=== PATIENT | male | born 1940 | race Caucasian/White ===

== ENCOUNTER 2020-03-07 12:01 | Emergency (ER) | payer MEDICARE, OTHER ==
[2020-03-07] MEDS ORDERED: Sodium Chloride 0.9% 10 ML Syringe FLUSH PRN (12:06)
[2020-03-07 12:30] LABS: CHLORIDE,CL 101 mmol/L (98-107); SODIUM,NA 137 mmol/L (136-145)
[2020-03-07] MEDS: methylPREDNISolone Sodium Succinate 125 MG/2 ML SDV IVPUSH ONE (13:41)
[2020-03-07] MEDS: cefTRIAXone 1 GM in Sodium Chloride 0.9% 100 ML IV ONE (13:41)
--- NOTE | 2020-03-07 13:43 | EDM.PDOC ---
ED HPI GENERAL MEDICAL PROBLEM - General Chief Complaint: Respiratory Problem Stated Complaint: SOB Time Seen by Provider: 03/07/20 12:02 Source of Information: Reports: Patient, EMS History Limitations: Reports: No Limitations - History of Present Illness INITIAL COMMENTS - FREE TEXT/NARRATIVE: Pt with increased SOB for past several days Has hx/o oxygen dependent COPD USes 3 L at home On 5 L today sats 88% EMS put pt on 6 L and sats 91-92% No fever Rare cough No chest pain Onset: Gradual Duration: Day(s):, Getting Worse Location: Reports: Chest - Related Data Allergies Allergy/AdvReac Type Severity Reaction Status Date / Time levofloxacin Allergy Cannot Verified 03/07/20 12:49 Remember Penicillins Allergy Cannot Verified 03/07/20 12:49 Remember sulfameter Allergy Cannot Verified 03/07/20 12:49 Remember Hoxazole Allergy Cannot Uncoded 03/07/20 12:50 Remember Social & Family History - Tobacco Use Tobacco Use Status *Q: Former Tobacco User Years of Tobacco use: 56 Used Tobacco, but Quit: Yes Month/Year Tobacco Last Used: 2004 ED ROS GENERAL - Review of Systems Review Of Systems: See Below Constitutional: Reports: No Symptoms HEENT: Reports: No Symptoms Respiratory: Reports: Shortness of Breath Cardiovascular: Reports: No Symptoms GI/Abdominal: Reports: No Symptoms Musculoskeletal: Reports: No Symptoms ED EXAM, GENERAL - Physical Exam Exam: See Below Exam Limited By: No Limitations General Appearance: Alert, WD/WN, Mild Distress Throat/Mouth: Normal Oropharynx Neck: Supple Respiratory/Chest: Decreased Breath Sounds Cardiovascular: Tachycardia GI/Abdominal: Soft, Non-Tender Extremities: No Pedal Edema Neurological: Alert, Oriented, No Motor/Sensory Deficits Psychiatric: Normal Affect, Normal Mood Course - Vital Signs Last Recorded V/S: Last Vital Signs Temp 98.2 F 03/07/20 12:04 Pulse 102 H 03/07/20 13:04 Resp 20 03/07/20 13:04 BP 100/63 03/07/20 13:04 Pulse Ox 94 L 03/07/20 13:04 - Orders/Labs/Meds Orders: Active Orders 24 hr Category Date Time Status Chest 1V Frontal [CR] Stat Exams 03/07/20 12:03 Taken Sodium Chloride 0.9% [Saline Flush] Med 03/07/20 12:06 Active 10 ml FLUSH ASDIRECTED PRN cefTRIAXone [Rocephin] 1 gm Med 03/07/20 13:31 Active Sodium Chloride 0.9% [Normal Saline] 100 ml IV ONETIME Isolation [COMM] Routine Oth 03/07/20 12:05 Active Saline Lock Insert [OM.PC] Routine Oth 03/07/20 12:06 Ordered Medication Orders Ceftriaxone Sodium 1 gm/ (Sodium Chloride) 100 mls @ 200 mls/hr IV ONETIME ONE Stop: 03/07/20 14:00 Sodium Chloride (Saline Flush) 10 ml FLUSH ASDIRECTED PRN PRN Reason: Keep Vein Open Labs: Laboratory Tests 03/07/20 03/07/20 03/07/20 Range/Units 12:05 12:10 12:10 WBC 13.0 H (4.0-10.2) K/uL RBC 4.67 (4.33-5.41) M/uL Hgb 14.8 (13.1-16.8) g/dL Hct 45.2 (39.0-49.0) % MCV 96.8 (84.0-98.0) fL MCH 31.7 (28.2-33.3) pg MCHC 32.7 (31.7-36.0) g/dL RDW 12.7 (11.2-14.1) % Plt Count 194 (150-350) K/uL Neut % (Auto) 88.4 H (45.0-80.0) % Lymph % (Auto) 2.7 L (10.0-50.0) % [place] % (Auto) 8.6 (2.0-14.0) % Eos % (Auto) 0.1 (0.0-5.0) % Baso % (Auto) 0.2 (0.0-2.0) % Neut # (Auto) 11.52 H (1.40-7.00) K/uL Lymph # (Auto) 0.35 L (0.50-3.50) K/uL [place] # (Auto) 1.12 H (0.00-1.00) K/uL Eos # (Auto) 0.01 (0.00-0.50) K/uL Baso # (Auto) 0.02 (0.00-0.20) K/uL Sodium 137 (136-145) mmol/L Potassium 3.7 (3.5-5.1) mmol/L Chloride 101 (98-107) mmol/L Carbon Dioxide 21.8 (21.0-32.0) mmol/L BUN 23 H (7-18) mg/dL Creatinine 0.86 (0.51-1.17) mg/dL Est Cr Clr Drug Dosing 62.68 mL/min Estimated GFR (MDRD) > 60 mL/min Glucose 106 (74-106) mg/dL Lactic Acid (0.4-2.0) mmol/L Calcium 9.4 (8.5-10.1) mg/dL Total Bilirubin 1.1 H (0.2-1.0) mg/dL AST 14 L (15-37) U/L ALT 19 (12-78) U/L Alkaline Phosphatase 87 (46-116) IU/L Total Protein 7.3 (6.4-8.2) g/dL Albumin 3.2 L (3.4-5.0) g/dL SARS-CoV-2 RNA (KIMBER) Negative (NEGATIVE) 03/07/20 Range/Units 12:10 WBC (4.0-10.2) K/uL RBC (4.33-5.41) M/uL Hgb (13.1-16.8) g/dL Hct (39.0-49.0) % MCV (84.0-98.0) fL MCH (28.2-33.3) pg MCHC (31.7-36.0) g/dL RDW (11.2-14.1) % Plt Count (150-350) K/uL Neut % (Auto) (45.0-80.0) % Lymph % (Auto) (10.0-50.0) % [place] % (Auto) (2.0-14.0) % Eos % (Auto) (0.0-5.0) % Baso % (Auto) (0.0-2.0) % Neut # (Auto) (1.40-7.00) K/uL Lymph # (Auto) (0.50-3.50) K/uL [place] # (Auto) (0.00-1.00) K/uL Eos # (Auto) (0.00-0.50) K/uL Baso # (Auto) (0.00-0.20) K/uL Sodium (136-145) mmol/L Potassium (3.5-5.1) mmol/L Chloride (98-107) mmol/L Carbon Dioxide (21.0-32.0) mmol/L BUN (7-18) mg/dL Creatinine (0.51-1.17) mg/dL Est Cr Clr Drug Dosing mL/min Estimated GFR (MDRD) mL/min Glucose (74-106) mg/dL Lactic Acid 1.6 (0.4-2.0) mmol/L Calcium (8.5-10.1) mg/dL Total Bilirubin (0.2-1.0) mg/dL AST (15-37) U/L ALT (12-78) U/L Alkaline Phosphatase (46-116) IU/L Total Protein (6.4-8.2) g/dL Albumin (3.4-5.0) g/dL SARS-CoV-2 RNA (KIMBER) (NEGATIVE) Meds: Medications Generic Name Dose Route Start Last Admin Trade Name Freq PRN Reason Stop Dose Admin Ceftriaxone Sodium 1 gm/ 100 mls @ 200 mls/hr 03/07/20 13:31 Sodium Chloride IV 03/07/20 14:00 ONETIME ONE Sodium Chloride 10 ml 03/07/20 12:06 Saline Flush FLUSH ASDIRECTED PRN Keep Vein Open Discontinued Medications Generic Name Dose Route Start Last Admin Trade Name Freq PRN Reason Stop Dose Admin Methylprednisolone Sodium Succinate 125 mg 03/07/20 13:32 Solu-Medrol IVPUSH 03/07/20 13:33 ONETIME ONE - Re-Assessments/Exams Free Text/Narrative Re-Assessment/Exam: 03/07/20 13:41 See lab CXR with possible infiltrates in upper lobes Pt given Rocephin 1 gm IV and Solu-medrol 125 mg IV in ER D/W Dr Xiong On-call hospitalist Marydel Will accept in transfer Departure - Departure Time of Disposition: 13:45 Disposition: DC/Tfer to [facility] 02 Clinical Impression: COPD exacerbation - Discharge Information *PRESCRIPTION DRUG MONITORING PROGRAM REVIEWED*: Not Applicable *COPY OF PRESCRIPTION DRUG MONITORING REPORT IN PATIENT LUL: Not Applicable Referrals: PCP,Not In Area [Primary Care Provider] - Sepsis Event Note (ED) - Evaluation Sepsis Screening Result: Possible Sepsis Risk - Focused Exam Vital Signs: Vital Signs Temp Pulse Resp BP Pulse Ox 03/07/20 13:04 102 H 20 100/63 94 L 03/07/20 12:25 90 20 107/63 90 L 03/07/20 12:10 112 H 20 101/65 90 L 03/07/20 12:04 98.2 F 116 H 20 103/73 93 L - My Orders Last 24 Hours: My Active Orders 03/07/20 12:03 Chest 1V Frontal [CR] Stat 03/07/20 12:05 Isolation [COMM] Routine 03/07/20 12:06 Sodium Chloride 0.9% [Saline Flush] 10 ml FLUSH ASDIRECTED PRN Saline Lock Insert [OM.PC] Routine 03/07/20 13:31 cefTRIAXone [Rocephin] 1 gm Sodium Chloride 0.9% [Normal Saline] 100 ml IV ONETIME - Assessment/Plan Last 24 Hours: My Active Orders 03/07/20 12:03 Chest 1V Frontal [CR] Stat 03/07/20 12:05 Isolation [COMM] Routine 03/07/20 12:06 Sodium Chloride 0.9% [Saline Flush] 10 ml FLUSH ASDIRECTED PRN Saline Lock Insert [OM.PC] Routine 03/07/20 13:31 cefTRIAXone [Rocephin] 1 gm Sodium Chloride 0.9% [Normal Saline] 100 ml IV ONETIME
== END 2020-03-07 14:25 ==
LOC: LL.ED 12:01
DX: J44.1 Chronic obstructive pulmonary disease with (acute) exacerbation (principal); Z87.891 Personal history of nicotine dependence; Z88.1 Allergy status to other antibiotic agents; Z88.0 Allergy status to penicillin; Z88.2 Allergy status to sulfonamides; Z88.8 Allergy status to other drugs, medicaments and biological substances; Z20.828 Contact with and (suspected) exposure to other viral communicable diseases
CPT/HCPCS: 36415; 71045; 80053; 83605; 85025; 87804; 96365; 96375; 99285-25; J0696; J2930; U0002

== ENCOUNTER 2021-01-02 14:03 | Emergency (ER) | payer OTHER, MEDICARE ==
[2021-01-02] MEDS ORDERED: Sodium Chloride 0.9% 10 ML Syringe FLUSH PRN (14:14)
[2021-01-02] MEDS ORDERED: Lactated Ringers 1,000 ML IV ONE (14:15)
[2021-01-02] MEDS ORDERED: HYDROmorphone 0.5 MG/0.5 ML Syringe IV ONE (14:15)
[2021-01-02] MEDS ORDERED: Ondansetron 4 MG/2 ML SDV IV ONE (14:15)
--- NOTE | 2021-01-02 14:15 | EDM.PDOC ---
ED HPI GENERAL MEDICAL PROBLEM - General Chief Complaint: Abdominal Pain Stated Complaint: abdominal pain Time Seen by Provider: 01/02/21 14:05 Source of Information: Reports: Patient History Limitations: Reports: No Limitations - History of Present Illness INITIAL COMMENTS - FREE TEXT/NARRATIVE: Patient comes emergency department today from home by ambulance with complaints of epigastric pain. This patient who has not had any surgeries in his abdomen in the past developed epigastric right upper quadrant pain 3 days ago after having a very fatty heavy meal. Initially he had severe pain in the right upper quadrant that was peristaltic in nature and intermittent but today has developed into constant severe epigastric and right upper quadrant pain. He has no hematuria dysuria urinary frequency. He has had no black tarry stools diarrhea or hematochezia. He denies any chest pain shortness of breath or difficulty breathing. Denies any weakness dizziness lightheadedness. No palpitations. No syncope. No fever no chills. He has been recurrent Robert vomiting all morning. Middle Epigastric Pain Score (Numeric/FACES): 10 - Related Data Allergies Allergy/AdvReac Type Severity Reaction Status Date / Time levofloxacin Allergy Cannot Verified 01/02/21 14:04 Remember Penicillins Allergy Cannot Verified 01/02/21 14:04 Remember strawberry Allergy Other Verified 01/02/21 14:04 sulfameter Allergy Cannot Verified 01/02/21 14:04 Remember Hoxazole Allergy Cannot Uncoded 01/02/21 14:04 Remember Home Meds: Home Meds Hydrocodone/Acetaminophen [HYDROcodone-Acetaminophen 5-325 MG] 1 each PO Q4HR PRN #14 tab 01/02/21 [Rx] ED ROS GENERAL - Review of Systems Review Of Systems: Comprehensive ROS is negative, except as noted in HPI. ED EXAM, GI/ABD - Physical Exam Exam: See Below Exam Limited By: No Limitations General Appearance: Alert, WD/WN, Mild Distress (Appears in somewhat discomfort or pain.) Eyes: Bilateral: EOMI Ears: Normal External Exam Nose: Normal Inspection Throat/Mouth: Normal Inspection, Normal Lips Head: Atraumatic, Normocephalic Neck: Normal Inspection, Supple, Non-Tender Respiratory/Chest: No Respiratory Distress, Lungs Clear, No Accessory Muscle Use, Chest Non-Tender Cardiovascular: Normal Peripheral Pulses, Regular Rate, Rhythm GI/Abdominal Exam: Normal Bowel Sounds, Guarding (Right upper quadrant positive Perez sign with guarding), Rigid (Mild rigidity throughout the abdomen), Tender (Generalized tenderness throughout the abdomen. More to the RUQ with guarding positive murphys sign. ). No: Rebound (No rebound tenderness.) (Male) Exam: Deferred Rectal (Males) Exam: Deferred Back Exam: Normal Inspection, Full Range of Motion Extremities: Normal Inspection, Normal Range of Motion, Non-Tender, No Pedal Edema, Normal Capillary Refill Neurological: Alert, Oriented, Normal Cognition, No Motor/Sensory Deficits Psychiatric: Normal Affect, Normal Mood Skin Exam: Intact, Cool, Diaphoretic, Pallor Lymphatic: No Adenopathy Course - Vital Signs Last Recorded V/S: Last Vital Signs Temp 97.3 F 01/02/21 14:08 Pulse 75 01/02/21 16:30 Resp 16 01/02/21 16:30 BP 115/54 L 01/02/21 16:30 Pulse Ox 94 L 01/02/21 16:30 - Orders/Labs/Meds Orders: Active Orders 24 hr Category Date Time Status Gallbladder [Abdomen Ltd] [US] Stat Exams 01/02/21 14:23 Taken PROCALCITONIN [REF] Stat Lab 01/02/21 14:20 Received Peripheral IV Insertion Adult [OM.PC] Stat Oth 01/02/21 14:14 Ordered Labs: Laboratory Tests 01/02/21 01/02/21 01/02/21 Range/Units 14:20 14:20 14:20 WBC 7.0 (4.0-10.2) K/uL RBC 4.74 (4.33-5.41) M/uL Hgb 14.3 (13.1-16.8) g/dL Hct 43.7 (39.0-49.0) % MCV 92.2 D (84.0-98.0) fL MCH 30.2 (28.2-33.3) pg MCHC 32.7 (31.7-36.0) g/dL RDW 13.4 (11.2-14.1) % Plt Count 182 (150-350) K/uL Neut % (Auto) 75.3 (45.0-80.0) % Lymph % (Auto) 15.2 (10.0-50.0) % [place] % (Auto) 7.3 (2.0-14.0) % Eos % (Auto) 1.9 (0.0-5.0) % Baso % (Auto) 0.3 (0.0-2.0) % Neut # (Auto) 5.26 (1.40-7.00) K/uL Lymph # (Auto) 1.06 (0.50-3.50) K/uL [place] # (Auto) 0.51 (0.00-1.00) K/uL Eos # (Auto) 0.13 (0.00-0.50) K/uL Baso # (Auto) 0.02 (0.00-0.20) K/uL Sodium 139 (136-145) mmol/L Potassium 3.8 (3.5-5.1) mmol/L Chloride 103 (98-107) mmol/L Carbon Dioxide 25.0 (21.0-32.0) mmol/L Anion Gap 11.0 (7-15) meq/L BUN 17 (7-18) mg/dL Creatinine 0.94 (0.51-1.17) mg/dL Est Cr Clr Drug Dosing TNP Estimated GFR (MDRD) > 60 mL/min Glucose 104 H (70-99) mg/dL Lactic Acid 0.9 (0.4-2.0) mmol/L Calcium 9.4 (8.5-10.1) mg/dL Total Bilirubin 1.6 H (0.2-1.0) mg/dL AST 189 H (15-37) U/L ALT 140 H (12-78) U/L Alkaline Phosphatase 231 H (46-116) IU/L Troponin I High Sens 31 (<=76) ng/L C-Reactive Protein 8.0 H (<=0.9) mg/dL Total Protein 7.2 (6.4-8.2) g/dL Albumin 3.5 (3.4-5.0) g/dL Lipase 55 L (73-393) U/L Meds: Medications Discontinued Medications Generic Name Dose Route Start Last Admin Trade Name Freq PRN Reason Stop Dose Admin Hydromorphone HCl 0.5 mg 01/02/21 14:15 01/02/21 14:20 Hydromorphone 0.5 Mg/0.5 Ml Syringe IV 01/02/21 14:16 0.5 mg ONETIME ONE Administration Lactated Ringer's 1,000 mls @ 1,000 mls/hr 01/02/21 14:15 01/02/21 14:28 Ringers, Lactated IV 01/02/21 15:14 1,000 mls/hr .BOLUS ONE Administration Ondansetron HCl 4 mg 01/02/21 14:15 01/02/21 14:19 Ondansetron 4 Mg/2 Ml Sdv IV 01/02/21 14:16 4 mg ONETIME ONE Administration Sodium Chloride 10 ml 01/02/21 14:14 01/02/21 14:20 Sodium Chloride 0.9% 10 Ml Syringe FLUSH 10 ml ASDIRECTED PRN Administration Keep Vein Open - Radiology Interpretation Free Text/Narrative:: Right upper quadrant ultrasound completed while in the emergency department. Per radiology shows gallbladder overall appears mildly distended containing multiple dependently located in nonmobile gallstones. No lukas-Loni cystic fluid. No definite wall thickening. Gallbladder wall is at the upper limits at 3 to 4 mm. Common duct is dilated 1.4 cm. No filling defects but would be difficult to exclude more distal stone. Consider follow-up MRCP. 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 Renal cyst present measuring up to 2 cm. No hydronephrosis. - Re-Assessments/Exams Free Text/Narrative Re-Assessment/Exam: 01/02/21 14:28 IV was established labs are drawn. Dilaudid 0.5 mg IV push. Zofran 4 mg IV push. Gallbladder ultrasound ordered. He has not eaten since last night. Laboratory evaluation with a normal CBC. CMP glucose 104, T bili 1.6, AST 189, ALT 140, alkaline phosphatase 231 Troponin negative at 31. C-reactive protein 8.0. Lipase normal at 55. EKG with a normal sinus rhythm rate of [address] elevation or depression when reviewed extemporaneously by myself. Patient had complete resolution of his abdominal pain as well as his nausea and vomiting. Repeat examination shows a soft nontender nondistended abdomen. He clearly has biliary colic as well as cholelithiasis. No evidence of acute cholecystitis. Although he does have a mild elevation of his T bili. His common bile duct is on the upper limits of normal. I do not see any overt signs of severe biliary obstruction. Patient is completely pain-free and would like to go home. I think this is appropriate at this time although [facility] his [facility] is elevated and he probably needs either an ERCP MRCP or surgical intervention in the very near future. This was explained to him and his family and they need to contact them tomorrow. They are very understanding this. Discussed gallbladder diet with the patient. As well as hydrocodone for pain. Return the emergency department or worsening symptoms. He has family are comfortable this plan and their questions are answered. Departure - Departure Time of Disposition: 16:04 Disposition: Home, Self-Care 01 Clinical Impression: Biliary colic, Total bilirubin, elevated Cholelithiasis Qualifiers: Cholelithiasis location: gallbladder Cholecystitis presence: without cholecystitis Biliary obstruction: without biliary obstruction Qualified Code(s): K80.20 - Calculus of gallbladder without cholecystitis without obstruction - Discharge Information Prescriptions: Hydrocodone/Acetaminophen [HYDROcodone-Acetaminophen 5-325 MG] 1 each PO Q4HR PRN #14 tab PRN Reason: Pain Instructions: Cholelithiasis, [id number], Biliary Colic, Adult, Pain Medicine Instructions, [id number] Referrals: PCP,None [Primary Care Provider] - Forms: ED Department Discharge Additional Instructions: Drink plenty of fluids over the next few days. Tylenol and or ibuprofen as needed for pain. Low fat diet. Nothing fatty, rich spicy or rich. If pain not controlled with above. [place] 1-2 tabs every 4-6 hrs with food as ne eded for pain. Caution sedation and constipation. Use Miralax OTC to prevent constipation. [facility]. You will need to be seen [facility]. A copy of the Ultrasound has been given to you to share with the [facility]. Return to the ED if new or worsening symptoms. Especially any change in the color of your skin, fever, worsening pain or uncontrolled nausea or vomiting. Zofran 1 tablet every 6 hrs as needed for nausea. Sepsis Event Note (ED) - Evaluation Sepsis Screening Result: No Definite Risk - Focused Exam Vital Signs: Vital Signs Temp Pulse Resp BP Pulse Ox 01/02/21 16:30 75 16 115/54 L 94 L 01/02/21 16:00 73 16 107/52 L 92 L 01/02/21 15:30 79 15 116/53 L 96 01/02/21 14:30 79 16 120/66 93 L 01/02/21 14:08 97.3 F 77 26 H 122/91 H 94 L - My Orders Last 24 Hours: My Active Orders 01/02/21 14:14 Peripheral IV Insertion Adult [OM.PC] Stat 01/02/21 14:20 PROCALCITONIN [REF] Stat 01/02/21 14:23 Gallbladder [Abdomen Ltd] [US] Stat - Assessment/Plan Last 24 Hours: My Active Orders 01/02/21 14:14 Peripheral IV Insertion Adult [OM.PC] Stat 01/02/21 14:20 PROCALCITONIN [REF] Stat 01/02/21 14:23 Gallbladder [Abdomen Ltd] [US] Stat
[2021-01-02 14:47] LABS: CHLORIDE,CL 103 mmol/L (98-107); SODIUM,NA 139 mmol/L (136-145)
[2021-01-02 17:25] VITALS: BP 115/54; PULSE 75
--- NOTE | 2021-01-02 17:51 | PCM.EKG ---
#1 Interpretation EKG Date: 01/02/21 Time: 14:30 Rhythm: NSR Rate (Beats/Min): 74 [place]: Normal P-Wave: Present QRS: Normal ST-T: Normal QT: Normal Comparison: NA - No Prior EKG
== END 2021-01-02 16:50 | disposition home or self-care (01) ==
LOC: LL.ED 14:03
DX: K80.20 Calculus of gallbladder without cholecystitis without obstruction (principal); E80.7 Disorder of bilirubin metabolism, unspecified; Z88.0 Allergy status to penicillin; Z88.1 Allergy status to other antibiotic agents; Z91.018 Allergy to other foods; Z88.8 Allergy status to other drugs, medicaments and biological substances
CPT/HCPCS: 36415; 76705; 80053; 83605; 83690; 84145; 84484; 85025; 86140; 93005; 96374; 96375; 99284; 99284-25; J1170; J2405; J7120

== ENCOUNTER 2021-02-25 13:26 | Emergency (ER) | payer OTHER, MEDICARE ==
[2021-02-25] MEDS ORDERED: Lactated Ringers 1,000 ML IV ONE (13:48)
--- NOTE | 2021-02-25 13:54 | EDM.PDOC ---
<Birdie Subramanian - Last Filed: 02/25/21 20:27> ED HPI GENERAL MEDICAL PROBLEM - General Chief Complaint: Respiratory Problem Stated Complaint: SOB Time Seen by Provider: 02/25/21 13:35 Source of Information: Reports: Patient History Limitations: Reports: No Limitations - History of Present Illness Onset: Today, Sudden Duration: Hour(s): - Related Data Allergies Allergy/AdvReac Type Severity Reaction Status Date / Time levofloxacin Allergy Cannot Verified 02/25/21 13:27 Remember Penicillins Allergy Cannot Verified 02/25/21 13:27 Remember strawberry Allergy Other Verified 02/25/21 13:27 sulfameter Allergy Cannot Verified 02/25/21 13:27 Remember Hoxazole Allergy Cannot Uncoded 02/25/21 13:27 Remember Home Meds: Home Meds Hydrocodone/Acetaminophen [HYDROcodone-Acetaminophen 5-325 MG] 1 each PO Q4HR PRN #14 tab 01/02/21 [Rx] Albuterol Sulfate [Proair Digihaler] 2 puff INH Q4HR PRN 02/25/21 [History] Alendronate Sodium 1 tab PO WEEKLY 02/25/21 [History] Apixaban [Eliquis] 1 tab PO BID 02/25/21 [History] Aspirin [Aspirin EC] 1 tab PO DAILY 02/25/21 [History] Fluticasone Propionate [Flonase Allergy Relief] 1 spray NASBOTH BID 02/25/21 [History] Metoprolol Succinate [Toprol XL] 1 tab PO DAILY 02/25/21 [History] Montelukast [Singulair] 1 tab PO BEDTIME 02/25/21 [History] Omeprazole 1 tab PO QPM 02/25/21 [History] Simvastatin 1 tab PO BEDTIME 02/25/21 [History] Tiotropium [Spiriva HandiHaler] 1 cap INH DAILY 02/25/21 [History] cycloSPORINE [Restasis Multidose] 1 drop EYEBOTH DAILY 02/25/21 [History] Past Medical History HEENT History: Reports: Hard of Hearing, Impaired Vision Cardiovascular History: Reports: High Cholesterol Respiratory History: Reports: COPD, Other (See Below) Other Respiratory History: emphysema Musculoskeletal History: Reports: Arthritis, Fracture Social & Family History - Caffeine Use Caffeine Use: Reports: Coffee ED ROS GENERAL - Review of Systems Review Of Systems: See Below Constitutional: Reports: No Symptoms. Denies: Fever, Chills, Weakness HEENT: Reports: No Symptoms Respiratory: Reports: Shortness of Breath. Denies: Wheezing, Pleuritic Chest Pain, Cough, Sputum Cardiovascular: Reports: No Symptoms Endocrine: Reports: No Symptoms GI/Abdominal: Reports: No Symptoms : Reports: No Symptoms Musculoskeletal: Reports: No Symptoms Skin: Reports: No Symptoms Neurological: Reports: No Symptoms Psychiatric: Reports: No Symptoms Hematologic/Lymphatic: Reports: No Symptoms Immunologic: Reports: No Symptoms ED EXAM, GENERAL - Physical Exam Exam: See Below Exam Limited By: No Limitations General Appearance: Alert, WD/WN, Mild Distress Ears: Normal External Exam Nose: Normal Inspection Neck: Normal Inspection, Full Range of Motion Respiratory/Chest: Lungs Clear, Decreased Breath Sounds (bilateral bases). No: Crackles, Rales, Rhonchi, Wheezing Course - Re-Assessments/Exams Free Text/Narrative Re-Assessment/Exam: 02/25/21 13:51 met at bedside. labs including CMP, CBC, d dimer, BNP, Mg, trop ordered. COVID/Influenza/RSV swab complete. CXR pending. 02/25/21 14:47 Hypotensive and tachycardic. SBP 90s and HR 150s. EKG: afib with rate 130-150. will provide fluid resuscitation prior to providing rate control medication. currently anticoagulated with eliquis. Pro BNP elevated. won't tolerate diuresis at this time 2/2 hypotension. home oxygen requirement 5L for COPD. pt currently requiring 4L with saturations in the mid to high 90s. 02/25/21 14:50 influenza/ covid/ RSV negative. 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 CXR shows emphysematous change and some bilateral pulmonary vascular congestion. 02/25/21 18:[address] Diaz at [facility]. Patient had been on a levo drip as his systolic blood pressure was in 80s. Change was then made to phenylephrine to avoid beta-blockade. Digoxin 0.5 mg low given x1 amiodarone 150 mg bolus given then 1 mg/min after. Post intervention heart rate remained 100 3150, blood pressure 99/79, respiratory rate increased to 35-40 with oxygen saturation 90% on 5 L. Patient was adamant that he was not interested in being intubated. Traffic Court Referee did not think it was safe to transfer patient to [facility] without intubation and ventilation but did agree that the odds that he would come off of the ventilator with severe COPD were extremely low. Patient continue to stress that he wanted no intubation. Transition was made to comfort cares. As needed morphine and Ativan were given, family was present at bedside. Awaiting end-of-life inpatient. Departure - Departure Disposition: Home, Self-Care 01 Clinical Impression: Decompensated COPD with exacerbation (chronic obstructive pulmonary disease), Need for comfort care, Atrial fibrillation with rapid ventricular response - Discharge Information Referrals: PCP,Unknown [Primary Care Provider] - Forms: ED Department Discharge Additional Instructions: Home with hospice. Sepsis Event Note (ED) - Evaluation Sepsis Screening Result: No Definite Risk <Vasiliy Jarrell - Last Filed: 02/26/21 14:15> Course - Vital Signs Last Recorded V/S: Last Vital Signs Temp 98.5 F 02/25/21 13:32 Pulse 94 02/25/21 17:55 Resp 32 H 02/25/21 17:55 BP 131/103 H 02/25/21 17:55 Pulse Ox 82 L 02/25/21 17:55 - Orders/Labs/Meds Orders: Active Orders 24 hr Category Date Time Status Oxygen Therapy [RC] PRN Care 02/25/21 13:49 Active Peripheral IV Care [RC] . DIRECTED Care 02/25/21 13:49 Active Pulse Oximetry [RC] CONTINUOUS Care 02/25/21 13:49 Active RT Aerosol Therapy [RC] ASDIRECTED Care 02/25/21 14:50 Active Chest 1V Frontal [CR] Stat Exams 02/25/21 13:48 Taken CULTURE BLOOD [BC] Stat Lab 02/25/21 13:46 Results CULTURE BLOOD [BC] Stat Lab 02/25/21 14:00 Results Digoxin [Lanoxin] Med 02/26/21 08:00 Active 125 mcg PO DAILY Glycopyrrolate [Robinul] Med 02/26/21 06:42 Active 0.2 mg IVPUSH Q4HR PRN LORazepam [Ativan] Med 02/25/21 21:05 Active 2 mg IVPUSH Q1H PRN Morphine Med 02/25/21 20:41 Active 4 mg IVPUSH Q30M PRN Sodium Chloride 0.9% [Saline Flush] Med 02/25/21 13:48 Active 10 ml FLUSH ASDIRECTED PRN Blood Culture x2 Reflex Set [OM.PC] Stat Oth 02/25/21 13:51 Ordered Peripheral IV Insertion Adult [OM.PC] Urgent Oth 02/25/21 13:48 Ordered Code Status [Resuscitation Status] Stat Resus Stat 02/25/21 15:25 Ordered Medication Orders Digoxin (Digoxin 125 Mcg Tab) 125 mcg PO DAILY KIANNA Glycopyrrolate (Glycopyrrolate 0.2 Mg/Ml Sdv) 0.2 mg IVPUSH Q4HR PRN PRN Reason: secretions Last Admin: 02/26/21 12:49 Dose: 0.2 mg Documented by: Admin: 02/26/21 07:36 Dose: 0.2 mg Documented by: TALI Lorazepam (Lorazepam 2 Mg/Ml Sdv) 2 mg IVPUSH Q1H PRN PRN Reason: Other Last Admin: 02/26/21 13:06 Dose: 2 mg Documented by: Admin: 02/26/21 10:36 Dose: 2 mg Documented by: TALI Morphine Sulfate (Morphine 4 Mg/Ml Syringe) 4 mg IVPUSH Q30M PRN PRN Reason: Other Last Admin: 02/26/21 12:49 Dose: 4 mg Documented by: Admin: 02/26/21 10:29 Dose: 4 mg Documented by: Admin: 02/26/21 08:57 Dose: 4 mg Documented by: Admin: 02/26/21 06:39 Dose: 4 mg Documented by: Admin: 02/25/21 23:05 Dose: 4 mg Documented by: ABIGAIL Sodium Chloride (Sodium Chloride 0.9% 10 Ml Syringe) 10 ml FLUSH ASDIRECTED PRN PRN Reason: Keep Vein Open Last Admin: 02/26/21 12:50 Dose: 10 ml Documented by: Admin: 02/26/21 10:29 Dose: 10 ml Documented by: Admin: 02/26/21 08:56 Dose: 10 ml Documented by: Admin: 02/26/21 07:36 Dose: 10 ml Documented by: Admin: 02/26/21 06:40 Dose: 10 ml Documented by: Admin: 02/25/21 23:06 Dose: 10 ml Documented by: Admin: 02/25/21 17:20 Dose: 10 ml Documented by: Admin: 02/25/21 16:43 Dose: 10 ml Documented by: KIKA Labs: Laboratory Tests 02/25/21 02/25/21 02/25/21 Range/Units 13:46 13:46 13:46 WBC 7.3 (4.0-10.2) K/uL RBC 4.49 (4.33-5.41) M/uL Hgb 13.5 (13.1-16.8) g/dL Hct 41.6 (39.0-49.0) % MCV 92.7 (84.0-98.0) fL MCH 30.1 (28.2-33.3) pg MCHC 32.5 (31.7-36.0) g/dL RDW 14.8 H (11.2-14.1) % Plt Count 193 (150-350) K/uL Neut % (Auto) 67.8 (45.0-80.0) % Lymph % (Auto) 15.6 (10.0-50.0) % [place] % (Auto) 13.0 (2.0-14.0) % Eos % (Auto) 3.3 (0.0-5.0) % Baso % (Auto) 0.3 (0.0-2.0) % Neut # (Auto) 4.98 (1.40-7.00) K/uL Lymph # (Auto) 1.14 (0.50-3.50) K/uL [place] # (Auto) 0.95 (0.00-1.00) K/uL Eos # (Auto) 0.24 (0.00-0.50) K/uL Baso # (Auto) 0.02 (0.00-0.20) K/uL D-Dimer, Quantitative < 100 (0-400) ng/mL Sodium 141 (136-145) mmol/L Potassium 4.0 (3.5-5.1) mmol/L Chloride 104 (98-107) mmol/L Carbon Dioxide 27.0 (21.0-32.0) mmol/L Anion Gap 10.0 (7-15) meq/L BUN 21 H (7-18) mg/dL Creatinine 1.27 H (0.51-1.17) mg/dL Est Cr Clr Drug Dosing TNP Estimated GFR (MDRD) 55 mL/min Glucose 105 H (70-99) mg/dL Calcium 9.4 (8.5-10.1) mg/dL Magnesium 2.0 (1.8-2.4) mg/dL Total Bilirubin 0.9 (0.2-1.0) mg/dL AST 12 L (15-37) U/L ALT 13 (12-78) U/L Alkaline Phosphatase 67 (46-116) IU/L Troponin I High Sens (<=76) ng/L NT-Pro-B Natriuret Pep 3325 H (0-125) pg/mL Total Protein 7.0 (6.4-8.2) g/dL Albumin 3.2 L (3.4-5.0) g/dL Influenza Type A RNA (NEGATIVE) RSV RNA (INAAT) (NEGATIVE) Influenza Type B RNA (NEGATIVE) SARS-CoV-2 RNA (KIMBER) (NEGATIVE) 02/25/21 02/25/21 Range/Units 13:46 13:50 WBC (4.0-10.2) K/uL RBC (4.33-5.41) M/uL Hgb (13.1-16.8) g/dL Hct (39.0-49.0) % MCV (84.0-98.0) fL MCH (28.2-33.3) pg MCHC (31.7-36.0) g/dL RDW (11.2-14.1) % Plt Count (150-350) K/uL Neut % (Auto) (45.0-80.0) % Lymph % (Auto) (10.0-50.0) % [place] % (Auto) (2.0-14.0) % Eos % (Auto) (0.0-5.0) % Baso % (Auto) (0.0-2.0) % Neut # (Auto) (1.40-7.00) K/uL Lymph # (Auto) (0.50-3.50) K/uL [place] # (Auto) (0.00-1.00) K/uL Eos # (Auto) (0.00-0.50) K/uL Baso # (Auto) (0.00-0.20) K/uL D-Dimer, Quantitative (0-400) ng/mL Sodium (136-145) mmol/L Potassium (3.5-5.1) mmol/L Chloride (98-107) mmol/L Carbon Dioxide (21.0-32.0) mmol/L Anion Gap (7-15) meq/L BUN (7-18) mg/dL Creatinine (0.51-1.17) mg/dL Est Cr Clr Drug Dosing Estimated GFR (MDRD) mL/min Glucose (70-99) mg/dL Calcium (8.5-10.1) mg/dL Magnesium (1.8-2.4) mg/dL Total Bilirubin (0.2-1.0) mg/dL AST (15-37) U/L ALT (12-78) U/L Alkaline Phosphatase (46-116) IU/L Troponin I High Sens 8 (<=76) ng/L NT-Pro-B Natriuret Pep (0-125) pg/mL Total Protein (6.4-8.2) g/dL Albumin (3.4-5.0) g/dL Influenza Type A RNA Negative (NEGATIVE) RSV RNA (INAAT) Negative (NEGATIVE) Influenza Type B RNA Negative (NEGATIVE) SARS-CoV-2 RNA (KIMBER) Negative (NEGATIVE) Meds: Medications Generic Name Dose Route Start Last Admin Trade Name Freq PRN Reason Stop Dose Admin Digoxin 125 mcg 02/26/21 08:00 Digoxin 125 Mcg Tab PO DAILY KIANNA Glycopyrrolate 0.2 mg 02/26/21 06:42 02/26/21 12:49 Glycopyrrolate 0.2 Mg/Ml Sdv IVPUSH 0.2 mg Q4HR PRN Administration secretions Lorazepam 2 mg 02/25/21 21:05 02/26/21 13:06 Lorazepam 2 Mg/Ml Sdv IVPUSH 2 mg Q1H PRN Administration Other Morphine Sulfate 4 mg 02/25/21 20:41 02/26/21 12:49 Morphine 4 Mg/Ml Syringe IVPUSH 4 mg Q30M PRN Administration Other Sodium Chloride 10 ml 02/25/21 13:48 02/26/21 12:50 Sodium Chloride 0.9% 10 Ml Syringe FLUSH 10 ml ASDIRECTED PRN Administration Keep Vein Open Discontinued Medications Generic Name Dose Route Start Last Admin Trade Name Josseline PRN Reason Stop Dose Admin Albuterol/Ipratropium 3 ml 02/25/21 14:50 02/25/21 15:07 Albuterol/Ipratropium 3.0-0.5 Mg/3 Ml Neb Soln NEB 02/25/21 14:51 3 ml ONETIME ONE Administration Amiodarone HCl 150 mg 02/25/21 16:23 02/25/21 17:20 Amiodarone 150 Mg/3 Ml Sdv IVPUSH 02/25/21 16:24 150 mg ONETIME ONE Administration Digoxin 500 mcg 02/25/21 16:27 02/25/21 16:43 Digoxin 500 Mcg/2 Ml Amp IVPUSH 02/25/21 16:28 500 mcg ONETIME ONE Administration Digoxin 250 mcg 02/25/21 20:45 Digoxin 500 Mcg/2 Ml Amp IVPUSH 02/25/21 20:46 ONETIME ONE Lactated Ringer's 1,000 mls @ 999 mls/hr 02/25/21 13:48 02/25/21 13:45 Ringers, Lactated IV 02/25/21 14:48 999 mls/hr .BOLUS ONE Administration Norepinephrine Bitartrate 4 mg 250 mls @ 7.5 mls/hr 02/25/21 15:30 02/25/21 15:47 / Dextrose/Water IV 2 mcg/min TITRATE KIANNA 7.5 mls/hr Administration Protocol 2 MCG/MIN Phenylephrine HCl 10 mg/ 101 mls @ 24.24 mls/hr 02/25/21 16:30 02/25/21 16:56 Sodium Chloride IV 40 mcg/min TITRATE KIANNA 24.24 mls/hr Administration Protocol 40 MCG/MIN Amiodarone HCl/Dextrose 360 mg in 200 mls @ 33.333 mls/hr 02/25/21 16:30 02/25/21 17:32 Nexterone In Dextrose 360 Mg/200 Ml IV 33.333 mls/hr ASDIRECTED KIANNA Administration Protocol Lorazepam Confirm 02/25/21 17:55 Lorazepam 2 Mg/Ml Sdv Administered 02/25/21 17:56 Dose 2 mg .ROUTE .STK-MED ONE Lorazepam Confirm 02/25/21 18:03 Lorazepam 2 Mg/Ml Sdv Administered 02/25/21 18:04 Dose 2 mg .ROUTE .STK-MED ONE Lorazepam Confirm 02/25/21 18:06 Lorazepam 2 Mg/Ml Sdv Administered 02/25/21 18:07 Dose 4 mg .ROUTE .STK-MED ONE Morphine Sulfate Confirm 02/25/21 17:55 Morphine 2 Mg/Ml Syringe Administered 02/25/21 17:56 Dose 2 mg .ROUTE .STK-MED ONE Morphine Sulfate Confirm 02/25/21 17:57 Morphine 2 Mg/Ml Syringe Administered 02/25/21 17:58 Dose 2 mg .ROUTE .STK-MED ONE Morphine Sulfate Confirm 02/25/21 17:59 Morphine 2 Mg/Ml Syringe Administered 02/25/21 18:00 Dose 2 mg .ROUTE .STK-MED ONE Morphine Sulfate Confirm 02/25/21 18:01 Morphine 2 Mg/Ml Syringe Administered 02/25/21 18:02 Dose 4 mg .ROUTE .STK-MED ONE Morphine Sulfate Confirm 02/25/21 18:05 Morphine 4 Mg/Ml Syringe Administered 02/25/21 18:06 Dose 8 mg .ROUTE .STK-MED ONE Morphine Sulfate Confirm 02/25/21 18:21 Morphine 4 Mg/Ml Syringe Administered 02/25/21 18:22 Dose 4 mg .ROUTE .STK-MED ONE - Re-Assessments/Exams Free Text/Narrative Re-Assessment/Exam: 02/26/21 14:13 Patient remained relatively unresponsive most of the night and this morning. His oxygen was decreased to 2 L. He was receiving as needed Ativan and morphine. He is maintaining at this time. Patient is comfort care is no aggressive management and all drips have been discontinued. The patient is actively dying although the family would like him to at home. There was a long discussion with social work and the family and this is their wishes as well as the patient's wishes. Hospice was set up and they will meet him at home and he was discharged home. The patient is unresponsive upon discharge. Departure - Departure Time of Disposition: 13:00 - My Orders Last 24 Hours: My Active Orders 02/26/21 06:42 Glycopyrrolate [Robinul] 0.2 mg IVPUSH Q4HR PRN - Assessment/Plan Last 24 Hours: My Active Orders 02/26/21 06:42 Glycopyrrolate [Robinul] 0.2 mg IVPUSH Q4HR PRN
[2021-02-25 14:28] LABS: CHLORIDE,CL 104 mmol/L (98-107); SODIUM,NA 141 mmol/L (136-145)
[2021-02-25 14:38] LABS: CORONAVIRUS COVID-19 NAA NEGATIVE (NEGATIVE); RESPIRATORY SYNCYTIAL VIR NAA NEGATIVE (NEGATIVE)
[2021-02-25] MEDS ORDERED: Albuterol/Ipratropium 3.0-0.5 MG/3 ML Neb Soln NEB ONE (14:50)
[2021-02-25] MEDS ORDERED: Norepinephrine 4 MG in Dextrose 5% in Water 246 ML IV SCH ×2 (15:30)
[2021-02-25] MEDS ORDERED: Amiodarone 150 MG/3 ML SDV IVPUSH ONE (16:23)
[2021-02-25] MEDS ORDERED: Digoxin 500 MCG/2 ML Amp IVPUSH ONE ×2 (16:27→20:45)
[2021-02-25] MEDS: Sodium Chloride 0.9% 10 ML Syringe FLUSH PRN ×3 (16:43→23:06)
[2021-02-25] MEDS ORDERED: Morphine 2 MG/ML SYRINGE ONE ×8 (17:55→18:01)
[2021-02-25] MEDS ORDERED: Morphine 4 MG/ML Syringe ONE ×6 (17:55→20:54)
[2021-02-25] MEDS ORDERED: LORazepam 2 MG/ML SDV ONE ×6 (17:55→19:33)
[2021-02-25] MEDS: Morphine 4 MG/ML Syringe IVPUSH PRN (23:05)
[2021-02-26] MEDS: Morphine 4 MG/ML Syringe IVPUSH PRN ×6 (06:39→15:29)
[2021-02-26] MEDS: Sodium Chloride 0.9% 10 ML Syringe FLUSH PRN ×5 (06:40→12:50)
[2021-02-26] MEDS: Glycopyrrolate 0.2 MG/ML SDV IVPUSH PRN ×2 (07:36→12:49)
[2021-02-26] MEDS ORDERED: Digoxin 125 MCG Tab PO SCH (08:00)
[2021-02-26] MEDS: LORazepam 2 MG/ML SDV IVPUSH PRN ×3 (10:36→14:25)
== END 2021-02-26 15:46 | disposition home or self-care (01) ==
LOC: LL.ED 13:26
DX: J44.1 Chronic obstructive pulmonary disease with (acute) exacerbation (principal); I48.91 Unspecified atrial fibrillation; E78.00 Pure hypercholesterolemia, unspecified; Z88.0 Allergy status to penicillin; Z88.1 Allergy status to other antibiotic agents; Z91.018 Allergy to other foods; Z88.2 Allergy status to sulfonamides; Z79.01 Long term (current) use of anticoagulants; Z79.899 Other long term (current) drug therapy; Z20.822 Contact with and (suspected) exposure to COVID-19
CPT/HCPCS: 0241U; 36415; 71045; 80053; 83735; 83880; 84484; 85025; 85379; 87040; 93005; 94761; 96365; 96367; 96368; 96375; 96376; 99284; 99285; J0282; J1160; J2060; J2270; J2370; J3490; J7060; J7120; J7620-GY